=== PATIENT | male | born 1990 | race Caucasian/White ===

== ENCOUNTER 2021-04-26 07:27 | Emergency (ER) | payer OTHER, MEDICAID, SELFPAY ==
--- NOTE | 2021-04-26 07:34 | ED_ITS ---
HPI - Extremity Injury (Lower) General Chief Complaint: Trauma Stated Complaint: left ankle injury, fell off ladder last night Time Seen by Provider: 04/26/21 07:33 Source: patient and family Mode of arrival: Wheelchair Limitations: no limitations History of Present Illness HPI Narrative: 30M nonsmoker without significant medical history presents with family in the chief complaint of an accidental fall from a ladder approximately 10 ft in the air yesterday while hanging a tap at Street. He lost his balance and fell, it admitting his fall with slowed by the ladder and his chest hitting a cabinet but the majority of his weight landed on his left ankle. He now has pain in his left ankle, the sole of his left foot and left knee. He denies any head neck or back pain. He denies any numbness, tingling or weakness. He has no chest pain or shortness of breath. His pain is worse with ambulation, motion and palpation and improves with rest. Patient activated as a modified trauma based the height of his fall MD complaint: knee injury, ankle injury and foot injury Injury: Left: knee, ankle and foot Type of Injury: inversion Place: home Severity: moderate Relieving factors: rest Exacerbating factors: weight bearing and movement Context: fall Associated symptoms: swelling and able to partially bear weight Other symptoms: none Related Data Previous Rx's Medication Instructions Recorded ibuprofen 600 mg PO TID-QID PRN #20 tab 04/26/21 Allergies Allergy/AdvReac Type Severity Reaction Status Date / Time No Known Drug Allergies Allergy Verified 04/26/21 07:38 Review of Systems Constitutional Constitutional: Denies chills, Denies fatigue, Denies fever(s), Denies frequent falls, Denies lethargy and Denies weakness Eyes Eyes: Denies change in vision, Denies eye discharge, Denies irritation and Denies loss of vision ENT Ears, Nose, Mouth, and Throat: Denies change in voice, Denies dizziness, Denies neck pain, Denies sore throat and Denies throat swelling Cardiovascular Cardiovascular: Denies chest pain, Denies irregular heart rhythm, Denies lightheadedness, Denies palpitations, Denies dyspnea, Denies dyspnea on exertion and Denies orthopnea Respiratory Respiratory: Denies cough, Denies dyspnea, Denies dyspnea on exertion and Denies wheezing Gastrointestinal Gastrointestinal: Denies abdominal pain, Denies change in bowel habits, Denies diarrhea, Denies nausea and Denies vomiting Musculoskeletal Musculoskeletal: Reports abnormal gait, Reports arthralgias, Reports joint swelling, Reports limited range of motion, Denies neck pain and Denies numbness Integumentary/Breasts Skin/Breast: Denies pruritus, Denies erythema, Denies rash and Denies wounds Neurologic Neurologic: Reports abnormal gait, Denies behavioral changes, Denies confusion, Denies dizziness, Denies frequent falls, Denies loss of vision, Denies numbness and Denies weakness Psychiatric Psychiatric: Denies anxiety, Denies behavioral changes, Denies confusion, Denies depression, Denies homicidal ideation and Denies suicidal ideation Endocrine Endocrine: Denies fatigue, Denies flushing and Denies palpitations Hematologic/Lymphatic Hematologic/Lymphatic: Denies easy bruising Allergic/Immunologic Allergic/Immunologic: Denies urticaria, Denies throat swelling and Denies wheezing Patient History Social History Smoking Status: Never smoker Smoking Status: Never smoker alcohol intake frequency: 0-2 drinks per day Substance Use Type: does not use Exam Narrative Exam Narrative: GENERAL: [30] year old patient appears stated age. Well- developed patient, in mild distress. GCS 15 HEAD: Atraumatic. Normocephalic. EYES: Pupils equal round and reactive. Extraocular motions intact. No scleral icterus. No injection or drainage. ENT: Nose without bleeding, purulent drainage. Throat without erythema, tonsillar hypertrophy or exudate. Airway patent. NECK: Trachea midline. Non tender, no step-offs or crepitance CARDIOVASCULAR: Regular rate and rhythm without murmurs, gallops, or rubs. RESPIRATORY: Clear to auscultation. Breath sounds equal bilaterally. No wheezes, rales, or rhonchi. GASTROINTESTINAL: Abdomen soft, non-tender, nondistended. EXTREMITIES: Left knee tender to palpate laterally, no large effusion. No ligamentous instability. L ankle pain, swelling over lateral malleolus. Pain on palpation of heel. BACK: No bony pain, Nontender without deformity or crepitance. No flank tenderness. NEURO: AOx3. SKIN: No rash or erythema of visible areas Initial Vital Signs Initial Vital Signs: Vital Signs Temperature 97.9 F 04/26/21 07:35 Pulse Rate 82 04/26/21 07:35 Respiratory Rate 20 06/10/21 07:35 Blood Pressure 185/88 H 04/26/21 07:35 Pulse Oximetry 97 04/26/21 07:35 Course Orders Ordered: ED Orders 04/26/21 07:37 XR ankle LT min 3V Stat XR calcaneus LT min 2V Stat XR knee LT 3V Stat Vital Signs Vital signs: Vital Signs - 8 hr 04/26/21 09:12 Pulse Rate 74 Blood Pressure 164/72 H Pulse Oximetry 97 MDM - Extremity Injury (Lower) Imaging Data Extremity x-ray #1: Radiologist's Impression: Sohail Licea 30 M [address] [id number] ReportSigned Patient: Anuja Licea#: [id number]: 1990Acct:[id number]/Sex: 30 / MDate of Service: 04/26/21Loc: EDAccession Number: [id number] Procedure: XR knee LT 3V Ordering Provider: Jackson Stinson D.O. PROCEDURE: XR KNEE LT 3V INDICATIONS: fall with lateral knee pain TECHNIQUE: 3 views of the knee were acquired. COMPARISON: None. FINDINGS: Bones: No fractures or dislocations. No suspicious bony lesions. Soft tissues: Suspect small joint effusion. No suspicious soft tissue calcifications. IMPRESSION: No acute osseous abnormality. Dictated by: Héctor Boykin M.D. on 04/26/2021 at 8:11 Approved by: Héctor Boykin M.D. on 04/26/2021 at 8:12 Extremity x-ray #2: Radiologist's Impression: [address] [id number] ReportSigned Patient: Anuja Licea#: [id number]: 1990Acct:[id number]/Sex: 30 / MDate of Service: 04/26/21Loc: EDAccession Number: [id number] Procedure: XR calcaneus LT min 2V Ordering Provider: Jackson Stinson D.O. PROCEDURE: XR CALCANEOUS LT MIN 2V INDICATIONS: fall with heel pain TECHNIQUE: Two views of the calcaneus were acquired. COMPARISON: [facility], CR, XR ANKLE LT MIN 3V, 04/26/2021, 7:39. FINDINGS: Bones: No fractures or dislocations. Small plantar calcaneal spur. No suspicious bony lesions. Soft tissues: No suspicious calcifications. Achilles tendon appears normal. IMPRESSION: No acute osseous abnormality. Dictated by: Héctor Boykin M.D. on 04/26/2021 at 8:12 Approved by: Héctor Boykin M.D. on 04/26/2021 at 8:13 Extremity x-ray #3: Radiologist's Impression: [address] [id number] ReportSigned Patient: Anuja Licea#: [id number]: 1990Acct:[id number]/Sex: 30 / MDate of Service: 04/26/21Loc: EDAccession Number: [id number] Procedure: XR ankle LT min 3V Ordering Provider: Jackson Stinson D.O. PROCEDURE: XR ANKLE LT MIN 3V INDICATIONS: fall from ladder with lateral ankle pain TECHNIQUE: 3 views of the ankle were acquired. COMPARISON: [facility], CR, XR CALCANEOUS LT MIN 2V, 04/26/2021, 7:39. FINDINGS: Bones: No fractures or dislocations. Ankle mortise is normally aligned. No suspicious bony lesions. Soft tissues: No tibiotalar joint effusion. Achilles tendon appears normal. IMPRESSION: No acute osseous abnormality. Dictated by: Héctor Boykin M.D. on 04/26/2021 at 8:09 Approved by: Héctor Boykin M.D. on 04/26/2021 at 8:11 Discharge Plan Departure Patient Disposition: Home Clinical Impression: Ankle sprain Qualifiers: Encounter type: initial encounter Involved ligament of ankle: unspecified ligament Laterality: left Qualified Code(s): S93.402A - Sprain of unspecified ligament of left ankle, initial encounter Contusion of foot Qualifiers: Encounter type: initial encounter Laterality: left Qualified Code(s): S90.32XA - Contusion of left foot, initial encounter Knee sprain Qualifiers: Encounter type: initial encounter Involved ligament of knee: unspecified ligament Laterality: left Qualified Code(s): S83.92XA - Sprain of unspecified site of left knee, initial encounter Instructions: DI for Ankle Sprain Activity Restrictions/Additional Instructions: *You have been diagnosed with [fall with ankle and knee sprain. X-rays and exam are very reassuring and no fracture is suspected] *What to do: *Please continue to take your regular medications as directed. [x ] New medication prescriptions sent to your pharmacy: [ ] [ ] New medication written as a paper prescription [ ] No new medications given *Please follow up with your primary care provider in 2-3 days, call for an appointment. Let them know you were seen in the Emergency Department and that we ask that you be seen in follow up. We will electronically transmit a record of today's note if your PCP is in our system *If you do not have a primary care provider please contact the [facility] Resource line at [phone]. They will ask some questions about your medical history and help get you set up with a doctor in the community. *Return to Emergency Department if you should have any new, worsening or concerning symptoms, such as [fever greater than 101 F, shaking chills, worsening pain, persistent vomiting or other bothersome symptoms] Prescriptions: New ibuprofen 600 mg tablet 600 mg PO TID-QID PRN (Reason: pain) Qty: 20 RF: 0 Referrals: Sergo Farr MD [Family Provider] -
[2021-04-26 07:35] VITALS: BP 185/88; PULSE 82; RESP 20; TEMP 36.6; O2SAT 97; BMI 51.7
--- NOTE | 2021-04-26 07:37 | DI.RAD.S_ITS ---
PROCEDURE: XR CALCANEOUS LT MIN 2V INDICATIONS: fall with heel pain TECHNIQUE: Two views of the calcaneus were acquired. COMPARISON: [facility], CR, XR ANKLE LT MIN 3V, 04/26/2021, 7:39. FINDINGS: Bones: No fractures or dislocations. Small plantar calcaneal spur. No suspicious bony lesions. Soft tissues: No suspicious calcifications. Achilles tendon appears normal. IMPRESSION: No acute osseous abnormality. Dictated by: Héctor Boykin M.D. on 04/26/2021 at 8:12 Approved by: Héctor Boykin M.D. on 04/26/2021 at 8:13
--- NOTE | 2021-04-26 07:37 | DI.RAD.S_ITS ---
PROCEDURE: XR ANKLE LT MIN 3V INDICATIONS: fall from ladder with lateral ankle pain TECHNIQUE: 3 views of the ankle were acquired. COMPARISON: [facility], CR, XR CALCANEOUS LT MIN 2V, 04/26/2021, 7:39. FINDINGS: Bones: No fractures or dislocations. Ankle mortise is normally aligned. No suspicious bony lesions. Soft tissues: No tibiotalar joint effusion. Achilles tendon appears normal. IMPRESSION: No acute osseous abnormality. Dictated by: Héctor Boykin M.D. on 04/26/2021 at 8:09 Approved by: Héctor Boykin M.D. on 04/26/2021 at 8:11
--- NOTE | 2021-04-26 07:37 | DI.RAD.S_ITS ---
PROCEDURE: XR KNEE LT 3V INDICATIONS: fall with lateral knee pain TECHNIQUE: 3 views of the knee were acquired. COMPARISON: None. FINDINGS: Bones: No fractures or dislocations. No suspicious bony lesions. Soft tissues: Suspect small joint effusion. No suspicious soft tissue calcifications. IMPRESSION: No acute osseous abnormality. Dictated by: Héctor Boykin M.D. on 04/26/2021 at 8:11 Approved by: Héctor Boykin M.D. on 04/26/2021 at 8:12
[2021-04-26 09:12] VITALS: BP 164/72; PULSE 74; O2SAT 97
== END 2021-04-26 09:13 | disposition home or self-care (01) ==
PROVIDERS: Emergency Provider Emergency Medicine; Family Provider Family Medicine
DX: S93.402A Sprain of unspecified ligament of left ankle, initial encounter (principal); S90.32XA Contusion of left foot, initial encounter; S83.92XA Sprain of unspecified site of left knee, initial encounter; W11.XXXA Fall on and from ladder, initial encounter
CPT/HCPCS: 73562; 73610; 73650; 99283; 99284